=== PATIENT | male | born 1940 | race Caucasian/White ===

== ENCOUNTER → 2020-02-14 | Day surgery (SDC) | payer MEDICARE, OTHER ==
[~2020-02-14] MED LIST: ASPI81TA59 PO; CYCL1DRO OP; EMPA10TA PO; FOLI20CA PO; HYDR-2145 PO; INSU100C4 SQ; INSU100I13 SQ; IPRATRPIUM/ALBUTEROL 0.5/2.5MG 3 ML NEBU. NEB PRN; IV RINGERS SOLUTION,LACTATED 1,000 ML IV SCH; LISI-334 PO; METF-551 PO; METF10007 PO; MULT-735 PO; OMEG1CAP50 PO; ONDANSETRON PF 4 MG/2 ML VIAL. IV PRN; PRIM50TA24 PO; PROPOFOL 10,000 MCG/ML (20ML) VIAL IV ONE; ROSU20TA28 PO
[2020-02-14 14:21] VITALS: BP 113/49
--- NOTE | 2020-02-19 17:06 | PATHOLOGY ---
[facility] Accession Number: [id number] . 01 Material submitted: . rectum - RECTAL POLYP . 02 Diagnosis: Colorectal biopsy, rectal polyp: - Hyperplastic polyp. (JPM:magnus; 02/19/2020) S 02/19/2020 0855 Local . 02 Comment: There are no adenomatous changes or evidence of malignancy. (JPM:magnus; 02/19/2020) . 02 Electronically signed: . Earl Snyder MD, Pathologist NPI- [id number] . 01 Gross description: . The specimen is received in formalin, labeled "Michael, Elfego, rectal polyp" and consists of a fragment of garcia tissue measuring 0.3 x 0.3 x 0.2 cm which is entirely submitted in A1. ([facility]; 02/18/2020) JFQ/JFQ 02/18/2020 1550 Local . 02 Pathologist provided ICD-10: K62.1 . 02 CPT . 610773 Specimen Comment: A courtesy copy of this report has been sent to [phone], [phone] Specimen Comment: [phone] Specimen Comment: Report sent to / DR PERSAUD Performed at: 01 [facility] [address], [place] [id number] MD Alfred Hercules MD Phone: [phone] Performed at: 02 [facility] [address] [place], [place] [id number] MD Earl Snyder MD Phone: [phone]
== END | disposition home or self-care (01) ==
LOC: SURG 10:41
PROVIDERS: ATTEND Internal Medicine Gastroenterology
DX: R19.4 Change in bowel habit (principal); K62.1 Rectal polyp; K64.0 First degree hemorrhoids; K57.30 Diverticulosis of large intestine without perforation or abscess without bleeding; I10 Essential (primary) hypertension; E11.9 Type 2 diabetes mellitus without complications; Z79.82 Long term (current) use of aspirin; Z88.8 Allergy status to other drugs, medicaments and biological substances; Z86.010 Personal history of colon polyps; Z79.84 Long term (current) use of oral hypoglycemic drugs; Z79.899 Other long term (current) drug therapy
CPT/HCPCS: 45380; J2704; J7120; 88305; U0003-CS